=== PATIENT | female | born 1995 | race Caucasian/White ===

== ENCOUNTER 2018-04-10 01:10 | Emergency (ER) | payer SELFPAY, OTHER | END 2018-04-10 02:15 | disposition home or self-care (01) | LOC: FTE 01:10 | DX: H65.02 Acute serous otitis media, left ear (principal) | CPT/HCPCS: 99283 ==

== ENCOUNTER 2019-02-06 19:14 | Emergency (ER) | payer OTHER ==
[2019-02-06 21:58] LABS: ADD UMIC YES; UR ASCORBIC ACID NEGATIVE (NEGATIVE); UR BACTERIA FEW /HPF (NONE SEEN); UR BILIRUBIN (Dip) NEGATIVE (NEGATIVE); UR BLOOD (Dip) NEGATIVE (NEGATIVE); UR CLARITY SLIGHTLY CLOUDY (CLEAR); UR COLOR YELLOW (YELLOW); UR GLUCOSE (Dip) NEGATIVE (NEGATIVE); UR KETONES (Dip) NEGATIVE (NEGATIVE); UR LEUKOCYTE ESTERASE (Dip) TRACE Leu/ul (NEGATIVE); UR MUCUS FEW /HPF (NONE SEEN); UR NITRITE (Dip) NEGATIVE (NEGATIVE); UR RBC 2 /HPF (0-5); UR SPECIFIC GRAVITY (Dip) 1.021 (1.003-1.030); UR SQUAMOUS EPITHELIAL CELL MODERATE /HPF (FEW); UR TOTAL PROTEIN (Dip) NEGATIVE (NEGATIVE); UR UROBILINOGEN (Dip) 2+ mg/dL (NEGATIVE); UR WBC 22 /HPF (0-5)
[2019-02-06] MEDS: KETOROLAC 30 MG INJ IM (22:04)
== END 2019-02-06 22:42 | disposition home or self-care (01) ==
LOC: FTE 19:14
DX: N30.00 Acute cystitis without hematuria (principal)
CPT/HCPCS: 81001; 84703; 96372; 99284-25